=== PATIENT | male | born 1995 | race Caucasian/White ===

== ENCOUNTER 2017-10-09 14:37 | Outpatient (CLI) | payer OTHER ==
[2016-03-30 11:34] VITALS: BP 122/76
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
== END 2017-10-09 14:40 ==
LOC: RAD 14:37
PROVIDERS: ATTEND Family Medicine
DX: M79.671 Pain in right foot (principal); M25.579 Pain in unspecified ankle and joints of unspecified foot
CPT/HCPCS: 73610; 73630